=== PATIENT | female | born 1950 | race Caucasian/White ===

== ENCOUNTER 2018-09-06 13:05 | Emergency (ER) | payer BC, SELFPAY ==
[2018-09-06 13:13] VITALS: BP 130/72; PULSE 81; RESP 20; TEMP 36.1; O2SAT 96; BMI 26.5
--- NOTE | 2018-09-06 14:03 | ED_ITS ---
HPI - Back Pain/Injury <ELISE Jacobs - Last Filed: 09/06/18 19:19> General Chief Complaint: Back Pain/Injury Stated Complaint: need test for heart Time Seen by Provider: 09/06/18 13:43 Source: patient Mode of arrival: ambulatory Limitations: no limitations History of Present Illness HPI Narrative: patient presents with chief complaint of back pain radiating from her spine up to her neck for the past 2 nights but is now pain free. She also complains of urinary urgency and frequency but no dysuria. She complains of general stomach discomfort. She denies any chest pain, but complained of shortness of breath with the back pain was really bad. She took ibuprofen several times at home without relief. She denies any possibility of mechanical etiology for her back pain. She presented today to the urgent care because she was concerned of a possible kidney infection between her back pain and her urinary urgency or frequency. She denies any fevers, swelling in the extremities but does complain of generalized abdominal pain. She thinks she is constipated, last bowel movement today but states it was hard. Denies any swelling of the extremities. She states her back pain used to be 10/10, but she is now pain free. Related Data Home Medications Medication Instructions Recorded Confirmed factor energy PO 09/06/18 09/06/18 multivitamin with minerals tablet 1 tab PO DAILY 09/06/18 09/06/18 [id number] PO 09/06/18 09/06/18 omega 3-ljj-qlt-fish oil 500 mg 3 cap PO DAILY cap 09/06/18 09/06/18 (200mg-300mg)-1,000 mg capsule sumatriptan 25 mg tablet 25 mg PO Q2-4H PRN 09/06/18 09/06/18 thyroid (pork) 48.75 mg tablet 75 mg PO DAILY tab 09/06/18 09/06/18 Allergies Allergy/AdvReac Type Severity Reaction Status Date / Time No Known Drug Allergies Allergy Verified 09/06/18 11:57 Review of Systems <ELISE Jacobs - Last Filed: 09/06/18 19:19> Review of Systems GENERAL: Denies chills, fatigue, malaise, fever, sweats. HEENT: Denies sinus pain, ear pain, sore throat, difficulty swallowing, dizziness. RESPIRATORY: Denies dyspnea, cough, wheezing, hemoptysis, sputum. CARDIOVASCULAR: see HPI GASTROINTESTINAL: Denies nausea, vomiting, abdominal pain, diarrhea, constipation, melena. : see HPI. MUSCULOSKELETAL: seeHPI SKIN: Denies rash, skin lesions, or other NEUROLOGIC: Denies weakness, headache, numbness, change in speech, confusion, seizures, incoordination. PSYCHIATRIC: No concerning psychosocial issues. 12 point review of systems is negative except for those stated above Exam <ZANE Jacobs-BC - Last Filed: 09/06/18 19:19> Narrative Exam Narrative: GENERAL: This is a well-nourished, well-developed patient, walking around room in no acute distress HEAD: Atraumatic. Normocephalic. No temporal or scalp tenderness. EYES: Pupils equal round and reactive. Extraocular motions intact. No scleral icterus. No injection or drainage. ENT: Nose without bleeding, purulent drainage or septal hematoma. Throat without erythema, tonsillar hypertrophy or exudate. Uvula midline. Airway patent. NECK: Trachea midline. No JVD or lymphadenopathy. Supple, nontender, no meningeal signs. CARDIOVASCULAR: Regular rate and rhythm without murmurs, gallops, or rubs. RESPIRATORY: Clear to auscultation. Breath sounds equal bilaterally. No wheezes , rales, or rhonchi. No cough on exam. No accessory muscle use or increased respiratory effort. GASTROINTESTINAL: Abdomen soft, generalized tenderness to palpation, nondistended. No hepato-splenomegaly, or palpable masses. No guarding. active bowel sounds all 4 quadrants. EXTREMITIES: No clubbing, cyanosis, or edema. No joint tenderness, effusion, or edema noted. BACK: Nontender without deformity or crepitance. No flank tenderness. No CVA tenderness. NEURO: AOx3. SKIN: No rash or erythema. Initial Vital Signs Initial Vital Signs: Vital Signs Temperature 97 F L 09/06/18 13:13 Pulse Rate 81 09/06/18 13:13 Respiratory Rate 20 09/06/18 13:13 Blood Pressure 130/72 09/06/18 13:13 Pulse Oximetry 96 09/06/18 13:13 <Lina May MD - Last Filed: 09/06/18 21:20> Initial Vital Signs Initial Vital Signs: Vital Signs Temperature 97 F L 09/06/18 13:13 Pulse Rate 81 09/06/18 13:13 Respiratory Rate 20 09/06/18 13:13 Blood Pressure 130/72 09/06/18 13:13 Pulse Oximetry 96 09/06/18 13:13 Course <ELISE Jacobs - Last Filed: 09/06/18 19:19> Orders Ordered: ED Orders 09/06/18 14:00 Amylase Stat Complete Blood Count AUTO DIFF Stat Comprehensive Metabolic Panel Stat Lipase Stat Troponin & CK Cardiac Panel Stat 09/06/18 15:10 Urinalysis and Microscopic Stat Reevaluation(s) Reevaluation #1: discussed at length with patient slightly elevated amylase. Offered CT scan given her vague complaints of abdominal pain and lab work. Patient initially accepted CT scan but then changed her mind. Stated she did not want to do with Radiology today. Discussed at length return precautions including worsening abdominal pain fevers or any acute concerns. Time: 15:00 Reevaluation #2: Patient declined an EKG in the emergency department. She states she already had one today and did not want another one. I discussed that I did not have that one to evaluate the emergency department. patient declined EKG to the respiratory therapist as well. Time: 15:30 Vital Signs - 8 hr 09/06/18 15:44 Pulse Rate 75 Respiratory Rate 14 Blood Pressure 106/69 Pulse Oximetry 99 <Lina May MD - Last Filed: 09/06/18 21:20> Orders Ordered: ED Orders 09/06/18 14:00 Amylase Stat Complete Blood Count AUTO DIFF Stat Comprehensive Metabolic Panel Stat Lipase Stat Troponin & CK Cardiac Panel Stat 09/06/18 15:10 Urinalysis and Microscopic Stat Vital Signs - 8 hr 09/06/18 15:44 Pulse Rate 75 Respiratory Rate 14 Blood Pressure 106/69 Pulse Oximetry 99 MDM - Back Pain/Injury <ELISE Jacobs - Last Filed: 09/06/18 19:19> Lab Data Result diagrams: 09/06/18 14:00 09/06/18 14:00 Lab Results 09/06/18 09/06/18 09/06/18 Range/Units 14:00 14:00 15:10 WBC 9.1 (4.5-11.0) X10^3/uL RBC 4.75 (4.0-5.2) X10^6/uL Hgb 14.2 (12.0-16.0) g/dL Hct 42.9 (36-46) % MCV 90.4 (80-100) fL MCH 29.9 (26-34) PG MCHC 33.1 (30-36) % RDW 13.3 (11.6-14.8) % Plt Count 223 (150-400) X10^3/uL Neut % (Auto) 63.8 (50-75) % Lymph % (Auto) 25.1 (25-40) % [place] % (Auto) 9.1 (3-14) % Eos % (Auto) 1.4 L (2-4) % Baso % (Auto) 0.6 (0-2) % Neut # (Auto) 5800 (4507-2618) /uL Sodium 142 (137-145) mmol/L Potassium 4.5 (3.4-5.1) mmol/L Chloride 104 (98-107) mmol/L Carbon Dioxide 27 (22-32) mmol/L BUN 17 (7-17) mg/dL Creatinine 0.70 (0.52-1.04) mg/dL Estimated GFR > 60.0 (>60) mL/min BUN/Creatinine Ratio 24.3 H (6-22) Glucose 91 (80-110) mg/dL Calcium 9.2 (8.4-10.2) mg/dL Total Bilirubin 0.6 (0.2-1.3) mg/dL AST 22 (14-36) IU/L ALT 27 (9-52) IU/L Alkaline Phosphatase 93 (38-126) U/L Total Creatine Kinase 29 L (30-135) U/L CK-MB (CK-2) TNP CK-MB (CK-2) Rel Index TNP Troponin I < 0.012 (0.01-0.034) ng/mL Total Protein 7.3 (6.3-8.2) g/dL Albumin 4.3 (3.5-5.0) g/dL Globulin 3.0 (1.7-4.1) g/dL Albumin/Globulin Ratio 1.4 (1.0-2.8) Amylase 132 H (30-110) U/L Lipase 201 (23-300) U/L Urine Color Yellow Urine Appearance Clear Urine pH 5.5 (4.5-8.0) Ur Specific [place] 1.015 (1.000-1.035) Urine Protein Negative (Negative) Urine Glucose (UA) Negative (Normal) g/dL Urine Ketones Trace H (NEGATIVE) Urine Occult Blood Negative (Negative) Urine Nitrate Negative (Negative) Urine Bilirubin Negative (NEGATIVE) Urine Urobilinogen 0.2 (0.2) E.U./dL Ur Leukocyte Esterase Negative (NEGATIVE) Urine RBC 1-5/hpf (0-5/HPF) Urine WBC None seen (0-5/HPF) Urine Bacteria None seen (None) Ur Culture Indicated? Not Reportable Micro UA Comment Not Reportable MDM Narrative Medical decision making narrative: Patient presents with chief complaint of back pain for the past two days and abdominal pain as well as some urinary symptoms. Patient had a Normal cardiac enzymes. She was noted to have slightly elevated amylase. Given her slightly elevated amylase as well as her abdominal pain, I offered an abdominal CT scan rule out acute etiology however the patient declined at this point time. She also declined an EKG in the emergency department. I discussed at length return precautions including worsening abdominal pain, chest pain shortness of breath. Patient had no questions or concerns upon discharge. <Lina May MD - Last Filed: 09/06/18 21:20> Lab Data Lab Results 09/06/18 09/06/18 09/06/18 Range/Units 14:00 14:00 15:10 WBC 9.1 (4.5-11.0) X10^3/uL RBC 4.75 (4.0-5.2) X10^6/uL Hgb 14.2 (12.0-16.0) g/dL Hct 42.9 (36-46) % MCV 90.4 (80-100) fL MCH 29.9 (26-34) PG MCHC 33.1 (30-36) % RDW 13.3 (11.6-14.8) % Plt Count 223 (150-400) X10^3/uL Neut % (Auto) 63.8 (50-75) % Lymph % (Auto) 25.1 (25-40) % [place] % (Auto) 9.1 (3-14) % Eos % (Auto) 1.4 L (2-4) % Baso % (Auto) 0.6 (0-2) % Neut # (Auto) 5800 (9361-3188) /uL Sodium 142 (137-145) mmol/L Potassium 4.5 (3.4-5.1) mmol/L Chloride 104 (98-107) mmol/L Carbon Dioxide 27 (22-32) mmol/L BUN 17 (7-17) mg/dL Creatinine 0.70 (0.52-1.04) mg/dL Estimated GFR > 60.0 (>60) mL/min BUN/Creatinine Ratio 24.3 H (6-22) Glucose 91 (80-110) mg/dL Calcium 9.2 (8.4-10.2) mg/dL Total Bilirubin 0.6 (0.2-1.3) mg/dL AST 22 (14-36) IU/L ALT 27 (9-52) IU/L Alkaline Phosphatase 93 (38-126) U/L Total Creatine Kinase 29 L (30-135) U/L CK-MB (CK-2) TNP CK-MB (CK-2) Rel Index TNP Troponin I < 0.012 (0.01-0.034) ng/mL Total Protein 7.3 (6.3-8.2) g/dL Albumin 4.3 (3.5-5.0) g/dL Globulin 3.0 (1.7-4.1) g/dL Albumin/Globulin Ratio 1.4 (1.0-2.8) Amylase 132 H (30-110) U/L Lipase 201 (23-300) U/L Urine Color Yellow Urine Appearance Clear Urine pH 5.5 (4.5-8.0) Ur Specific [place] 1.015 (1.000-1.035) Urine Protein Negative (Negative) Urine Glucose (UA) Negative (Normal) g/dL Urine Ketones Trace H (NEGATIVE) Urine Occult Blood Negative (Negative) Urine Nitrate Negative (Negative) Urine Bilirubin Negative (NEGATIVE) Urine Urobilinogen 0.2 (0.2) E.U./dL Ur Leukocyte Esterase Negative (NEGATIVE) Urine RBC 1-5/hpf (0-5/HPF) Urine WBC None seen (0-5/HPF) Urine Bacteria None seen (None) Ur Culture Indicated? Not Reportable Micro UA Comment Not Reportable Discharge Plan Departure Patient Disposition: Home Clinical Impression: Back pain, Urinary frequency Discharge Date/Time: 09/06/18 15:44 Interventions: ED Discharge Assessment Last Done: 09/06/18 15:44 Instructions: DI for Low Back Pain, DI for Thoracic Back Pain Activity Restrictions/Additional Instructions: Your lab work came back mostly normal here today. Some of your stomach labs were slightly elevated. Please come back to the emergency department if you have any acute stomach pain, chest pain or shortness of breath. You are leaving prior to your urine results, so we will call you if there are any abnormalities noted. Please follow-up with your primary care provider. Monitor for acute abdominal pain, fever or any acute concerns and feel free to be re-evaluated in the emergency department if needed. Prescriptions: No Action sumatriptan succinate 25 mg tablet 25 mg PO Q2-4H PRNRF: 0 thyroid (pork) 48.75 mg tablet 75 mg PO DAILY RF: 0 multivitamin with minerals [Hair,Skin and Nails] tablet 1 tab PO DAILY RF: 0 omega 9-xps-hze-fish oil [Ultra [place]-3] 500-1,000 mg capsule 3 cap PO DAILY RF: 0 factor energy PO RF: 0 [id number] PO RF: 0
[2018-09-06 14:08] LABS: Add Manual Diff / Slide Review NO; Basophils Percent Auto 0.6 % (0-2); Eosinophils Percent Auto 1.4 % (2-4); Hematocrit 42.9 % (36-46); Hemoglobin 14.2 g/dL (12.0-16.0); Lymphocytes Percent Auto 25.1 % (25-40); Mean Corpuscular HGB Conc 33.1 % (30-36); Mean Corpuscular Hemoglobin 29.9 PG (26-34); Mean Corpuscular Volume 90.4 fL (80-100); Monocytes Percent Auto 9.1 % (3-14); Neutrophils Absolute Auto 5800 /uL (3000-5900); Neutrophils Percent Auto 63.8 % (50-75); Platelet Count 223 X10^3/uL (150-400); Red Blood Cell Count 4.75 X10^6/uL (4.0-5.2); Red Cell Distribution Width 13.3 % (11.6-14.8); White Blood Cell Count 9.1 X10^3/uL (4.5-11.0)
[2018-09-06 14:26] LABS: Alanine Aminotransferase 27 IU/L (9-52); Albumin 4.3 g/dL (3.5-5.0); Albumin Globulin Ratio 1.4 (1.0-2.8); Alkaline Phosphatase 93 U/L (38-126); Amylase 132 U/L (30-110); Aspartate Aminotransferase 22 IU/L (14-36); BUN Creatinine Ratio 24.3 (6-22); Bilirubin Total 0.6 mg/dL (0.2-1.3); Blood Urea Nitrogen 17 mg/dL (7-17); Calcium 9.2 mg/dL (8.4-10.2); Carbon Dioxide 27 mmol/L (22-32); Chloride 104 mmol/L (98-107); Creatine Kinase 29 U/L (30-135); Estimated Glomerular Filt Rate > 60.0 mL/min (>60); Glucose 91 mg/dL (80-110); HEMOLYSIS < 15 (0-50); Lipase 201 U/L (23-300); Potassium 4.5 mmol/L (3.4-5.1); Sodium 142 mmol/L (137-145); Total Protein 7.3 g/dL (6.3-8.2)
[2018-09-06 14:39] LABS: Troponin I < 0.012 ng/mL (0.01-0.034)
--- NOTE | 2018-09-06 15:17 | PC.NURSE ---
bilat upper thoracic back pain no known injury worsening over 2 days resolved today upon visit to md also c/o urinary hesitancy/frequency, abd/cva nontender denies cp/soa/nausea/vomiting/diarrhea or other sx
[2018-09-06 15:36] LABS: Bacteria Urine None Seen; WBC Urine None Seen (0-5/HPF)
[2018-09-06 15:44] VITALS: BP 106/69; PULSE 75; RESP 14; O2SAT 99
[2018-09-06 15:47] LABS: Appearance Urine UA CLEAR; Bilirubin Urine UA NEGATIVE (NEGATIVE); Color Urine UA YELLOW; Glucose Urine UA NEGATIVE (Normal); Ketones Urine UA TRACE (NEGATIVE); Leukocyte Esterase Urine UA NEGATIVE (NEGATIVE); Nitrite Urine UA NEGATIVE (Negative); Occult Blood Urine UA NEGATIVE (Negative); Protein Urine UA NEGATIVE (Negative); Specific Gravity Urine UA 1.015 (1.000-1.035); Urobilinogen Urine UA 0.2 E.U./dL (0.2); pH Urine UA 5.5 (4.5-8.0)
[2018-09-06 16:02] LABS: RBC Urine 1-5/HPF (0-5/HPF)
== END 2018-09-06 15:44 | disposition home or self-care (01) ==
PROVIDERS: Emergency Provider Nurse Practitioner Family
DX: M54.9 Dorsalgia, unspecified (principal); R35.0 Frequency of micturition
CPT/HCPCS: 80053; 81001; 82150; 82550; 83690; 84484; 85025; 99282; 99283

== ENCOUNTER → 2018-11-02 08:01 | Outpatient (CLI) | payer BC, SELFPAY ==
--- NOTE | 2018-11-02 | DI.MG.S_ITS ---
BILATERAL DIGITAL SCREENING MAMMOGRAM 3D/2D WITH CAD: 11/02/2018 CLINICAL: Routine screening. Family history of breast cancer. Comparison is made to exams dated: 10/07/2017 mammogram - [facility], 09/19/2015 mammogram, and 09/17/2014 mammogram - [facility]. There are scattered fibroglandular elements in both breasts. Current study was also evaluated with a Computer Aided Detection (CAD) system. No significant masses, calcifications, or other findings are seen in either breast. There has been no significant interval change. IMPRESSION: NEGATIVE There is no mammographic evidence of malignancy. A 1 year screening mammogram is recommended. This exam was interpreted at Station ID: [id number]. NOTE: For mammograms, a report in lay terms will be sent to the patient. Approximately 15% of breast malignancies will not be visualized mammographically. In the management of a palpable breast mass, a negative mammogram must not discourage biopsy of a clinically suspicious lesion. Electronically Signed By: Jos pinto/navin:11/02/2018 17:23:42 copy to: Michael Acevedo letter sent: Normal Exam ACR BI-RADS Category 1: Negative [id number]
== END ==
PROVIDERS: PCP Internal Medicine; Visit Provider Naturopath
DX: Z12.31 Encounter for screening mammogram for malignant neoplasm of breast (principal); Z80.3 Family history of malignant neoplasm of breast
CPT/HCPCS: 77063; 77067

== ENCOUNTER → 2019-07-20 12:59 | Outpatient (CLI) | payer MEDICARE, OTHER, SELFPAY ==
--- NOTE | 2019-07-20 13:05 | DI.RAD.S_ITS ---
PROCEDURE: XR RIBS LT MIN 3V W CXR1V INDICATIONS: upper lateral left thorax/rib pain TECHNIQUE: 2 views of the left ribs were acquired, along with a single view chest. COMPARISON: None. FINDINGS: Surgical changes and devices: None. Bones and chest wall: No fractures or dislocations. No suspicious bony lesions. Overlying soft tissues appear unremarkable. Lungs and pleura: No pleural effusions or pneumothorax. Lungs appear clear. Mediastinum: Mediastinal contours appear normal. Heart size is normal. IMPRESSION: Source of pain involving the left ribs is not found. Dictated by: Rudolph Monique M.D. on 07/20/2019 at 13:42 Approved by: Rudolph Monique M.D. on 07/20/2019 at 13:43
== END ==
PROVIDERS: PCP Nurse Practitioner; Visit Provider Nurse Practitioner
DX: R07.81 Pleurodynia (principal)
CPT/HCPCS: 71101

== ENCOUNTER → 2020-04-07 13:24 | Outpatient (CLI) | payer MEDICARE, OTHER, SELFPAY ==
[2020-04-07 15:16] LABS: Free T3, Triiodothyronine Free 3.62 pg/mL (2.77-5.27); Free T4, Direct Thyroxine 1.24 ng/dL (0.78-2.19)
[2020-04-07 15:29] LABS: Thyroid Stimulating Hormone 1.06 uIU/mL (0.47-4.68)
== END ==
PROVIDERS: PCP Nurse Practitioner; Referring Provider Nurse Practitioner; Visit Provider Nurse Practitioner
DX: E03.9 Hypothyroidism, unspecified (principal); R53.83 Other fatigue; Z79.899 Other long term (current) drug therapy
CPT/HCPCS: 36415; 84439; 84443; 84481

== ENCOUNTER → 2020-12-10 12:43 | Outpatient (CLI) | payer MEDICARE, OTHER, SELFPAY | PROVIDERS: PCP Nurse Practitioner; Visit Provider Nurse Practitioner | DX: R30.9 Painful micturition, unspecified (principal) | CPT/HCPCS: 87077; 87086; 87185; 87186 ==

== ENCOUNTER → 2020-12-11 15:01 | Outpatient (CLI) | payer MEDICARE, OTHER, SELFPAY ==
[2020-12-11 17:40] LABS: BUN Creatinine Ratio 16.3 (6-22); Blood Urea Nitrogen 14 mg/dL (7-17); Carbon Dioxide 27 mmol/L (22-32); Chloride 104 mmol/L (98-107); Estimated Glomerular Filt Rate > 60.0 mL/min (>60); Glucose 124 mg/dL (80-110); HEMOLYSIS < 15 (0-50); Sodium 135 mmol/L (137-145)
== END ==
PROVIDERS: PCP Nurse Practitioner; Referring Provider Nurse Practitioner; Visit Provider Nurse Practitioner
DX: Z01.812 Encounter for preprocedural laboratory examination (principal)
CPT/HCPCS: 36415; 80048

== ENCOUNTER → 2020-12-12 09:42 | Outpatient (CLI) | payer MEDICARE, OTHER, SELFPAY ==
--- NOTE | 2020-12-12 10:07 | DI.CT.S_ITS ---
PROCEDURE: CT ABDOMEN PELVIS W CON INDICATIONS: abd pain TECHNIQUE: After the administration of intravenous contrast, 5 mm thick sections acquired from the diaphragm to the symphysis. 5 mm coronal and sagittal reformats were acquired. For radiation dose reduction, the following was used: automated exposure control, adjustment of mA and/or kV according to patient size. COMPARISON: None. FINDINGS: Image quality: Excellent. ABDOMEN: Lung bases: Lung bases are clear. Heart size is normal. Solid organs: Liver is normal in size and enhancement. Multiple low-density benign-appearing liver lesions likely representing cysts versus hemangiomata. Gallbladder is unremarkable. Biliary system is non dilated. Pancreas enhances normally. Spleen is normal in size and enhancement. No adrenal nodules. Kidneys demonstrate normal size and enhancement, without hydronephrosis. Peritoneum and bowel: There is extensive sigmoid diverticulosis. There is a focal area of wall edema and thickening in the sigmoid with inflammatory change in the surrounding fat. Findings are consistent with acute sigmoid diverticulitis. No free air or free fluid or abscess cavity. Nodes and vessels: No retroperitoneal or mesenteric adenopathy by size criteria. Aorta and inferior vena cava are normal in size. Miscellaneous: No ventral hernias. PELVIS: Genitourinary: Bladder wall thickness is normal. Miscellaneous: No inguinal hernias or adenopathy. Uterus is surgically absent. Bones: No suspicious bony lesions. No vertebral body compression fractures. Disc bulge at L4-L5. IMPRESSION: 1. Acute sigmoid diverticulitis. Comment: If the patient has not undergone recent colonoscopy, would consider colonoscopy on a nonemergent basis to exclude underlying lesion after patient has undergone treatment. Dictated by: Hollis Tony M.D. on 12/12/2020 at 10:07 Approved by: Hollis Tony M.D. on 12/12/2020 at 10:11
== END ==
PROVIDERS: PCP Nurse Practitioner; Referring Provider Nurse Practitioner; Visit Provider Nurse Practitioner
DX: R10.9 Unspecified abdominal pain (principal); R50.9 Fever, unspecified; K57.32 Diverticulitis of large intestine without perforation or abscess without bleeding
CPT/HCPCS: 74177; Q9967